=== PATIENT | male | born 1955 | race Hispanic/Latino ===

== ENCOUNTER → 2019-04-13 | Outpatient (CLI) | payer OTHER | END | disposition home or self-care (01) | LOC: OIH 14:57 | PROVIDERS: ATTEND Internal Medicine | DX: I10 Essential (primary) hypertension (principal); Z77.090 Contact with and (suspected) exposure to asbestos | CPT/HCPCS: 71046 ==

== ENCOUNTER → 2019-05-21 | Outpatient (CLI) | payer OTHER | END | disposition home or self-care (01) | LOC: RAH 13:26 | PROVIDERS: ATTEND Internal Medicine | DX: M79.601 Pain in right arm (principal); M79.602 Pain in left arm; I10 Essential (primary) hypertension; E78.5 Hyperlipidemia, unspecified; E03.9 Hypothyroidism, unspecified; D69.6 Thrombocytopenia, unspecified; Z77.090 Contact with and (suspected) exposure to asbestos | CPT/HCPCS: 71250 ==